=== PATIENT | female | born 1970 | race Caucasian/White ===

== ENCOUNTER 2022-04-09 09:57 | Emergency (ER) | payer MEDICARE ==
[~2022-04-09] VITALS: Ht 167.6 cm; Wt 143.3 kg
[2022-04-09 12:03] LABS: BILIRUBIN Negative (Negative); BLOOD 3+ (Negative); CLARITY Turbid (Clear); COLOR Dark Yellow (Yellow); GLUCOSE Negative (Negative); KETONE Negative (Negative); LEUKO ESTERASE 3+ (Negative); NITRITE Positive (Negative); SPECIFIC GRAVITY 1.015 (1.001-1.030)
[2022-04-09] MEDS ORDERED: PYRIDIUM200 M1 PO (12:11)
[2022-04-09] MEDS ORDERED: CIPRO500 MG PO (12:11)
[2022-04-09 12:17] LABS: WBC TNTC wbc/hpf (0-5)
== END 2022-04-09 13:30 | disposition home or self-care (01) ==
LOC: ED 09:57
PROVIDERS: Physician Assistant
DX: N39.0 Urinary tract infection, site not specified (principal); Z88.0 Allergy status to penicillin; Z88.2 Allergy status to sulfonamides; Z88.8 Allergy status to other drugs, medicaments and biological substances